=== PATIENT | male | born 1955 | race Caucasian/White ===

== ENCOUNTER 2019-02-09 10:19 | Outpatient (CLI) | payer OTHER ==
[~2019-02-09 10:19] MED LIST: NEURONTIN300 MG PO; TIZANIDINE HCL2 MG PO
== END 2019-02-09 10:22 | disposition home or self-care (01) ==
LOC: MRI 10:19
DX: M54.16 Radiculopathy, lumbar region (principal)
CPT/HCPCS: 72148

== ENCOUNTER 2020-10-05 07:46 | Outpatient (CLI) | payer OTHER | END 2020-10-05 07:48 | disposition home or self-care (01) | LOC: RAD 07:46 | DX: M54.5 Low back pain (principal); M99.01 Segmental and somatic dysfunction of cervical region; M99.02 Segmental and somatic dysfunction of thoracic region; M99.03 Segmental and somatic dysfunction of lumbar region ==